=== PATIENT | female | born 1955 | race African-American/Black ===

== ENCOUNTER 2021-08-11 16:31 | Emergency (ER) | payer MEDICAID ==
[~2021-08-11] VITALS: Ht 175.3 cm; Wt 97.1 kg
[2021-08-11 16:36] VITALS: BP 170/100
--- NOTE | 2021-08-11 16:44 | NUR ---
Olga carcamo in [facility] - 08/11/21 at 1645 by [email or web address] PT AMB TO BED 8.
--- NOTE | 2021-08-11 16:45 | NUR ---
PT AMB TO BED 7.
--- NOTE | 2021-08-11 16:55 | NUR ---
DR. VERDE BEDSIDE EVALUATING PT
--- NOTE | 2021-08-11 16:55 | NUR ---
65Y FEMALE BIB SELF DUE TO BILATERAL KNEE PAIN X4 YRS, BUT IS EXPERINCING A FLARE UP XTODAY. PER PATIENT PAIN IS 9/10 AND ACHE LIKE PAIN. PT IS AMBULATORY, BUT STATED "SHE NEEDS TO WALK SLOWER DUE TO PAIN." PT IS ALSO EXPERINCING HIGH BP, CURRENT BP IS 170/100. PT IS EXPERINCING LIGHTHEADNESS/BLURRED VISION, BUT DENIED HEADACHE. PT DENIES TAKING ANY BP MEDICATIONS AT HOME. PT IS A&OX4. PMH: HTN, OA NKA
[2021-08-11] MEDS ORDERED: ACETAMINOPHEN EXTRA STRENGTH 500 MG TAB PO ONE (17:00)
[2021-08-11] MEDS ORDERED: LABETALOL 100 MG/20 ML VIAL IVP ONE (17:05)
--- NOTE | 2021-08-11 17:17 | NUR ---
18G IV ESTABLISHED IN R AC. BLOODWORK COLLECTED AND HANDED TO [employer] BEDSIDE
[2021-08-11 17:27] LABS: BASOPHILS # (AUTO) 0.1 K/uL (0.00-0.22); EOSINOPHILS # (AUTO) 0.2 K/uL (0-0.4); EOSINOPHILS % (AUTO) 2.1 % (0.0-4.0); HEMATOCRIT 40.3 % (36-48); HEMOGLOBIN 13.5 g/dL (12.0-16.0); LYMPHOCYTES # (AUTO) 3.7 K/uL (2.5-16.5); LYMPHOCYTES % (AUTO) 42.7 % (20.5-51.1); MEAN CORPUSCULAR HEMOGLOBIN 30 pg (27-31); MEAN CORPUSCULAR HGB CONC 34 g/dL (33-37); MEAN CORPUSCULAR VOLUME 89.7 fL (80-94); MONOCYTES # (AUTO) 0.7 K/uL (0.8-1.0); MONOCYTES % (AUTO) 8.6 % (1.7-9.3); NEUTROPHILS % (AUTO) 45.6 % (42.2-75.2); PLATELET COUNT (AUTO) 233 K/uL (140-450); RED BLOOD CELL COUNT(AUTO) 4.49 MIL/uL (4.20-5.40); RED CELL DISTRIBUTION WIDTH 13.4 % (11.6-13.7); WHITE BLOOD COUNT (AUTO) 8.7 K/uL (4.8-10.8)
[2021-08-11 17:49] LABS: ALBUMIN 3.5 g/dL (3.4-5.0); CARBON DIOXIDE 26.3 mmol/L (21-32); CREATININE 1.4 mg/dL (0.6-1.3); POTASSIUM 4.3 mmol/L (3.5-5.1); TOTAL BILIRUBIN 0.2 mg/dL (0.0-1.0)
[2021-08-11] MEDS ORDERED: HYDR12.51 PO (18:09)
[2021-08-11 18:20] VITALS: BP 141/78
--- NOTE | 2021-08-11 18:21 | NUR ---
Patient discharged with v/s stable. Written and verbal after care instructions given and explained. Patient alert, oriented and verbalized understanding of instructions. Ambulatory with steady gait. All questions addressed prior to discharge. ID band removed. Patient advised to follow up with PMD. Rx of HYDROCHLOROTHIAZIDE given. Patient educated on indication of medication including possible reaction and side effects. Opportunity to ask questions provided and answered.
== END 2021-08-11 18:20 | disposition home or self-care (01) ==
LOC: MED 16:31
DX: I10 Essential (primary) hypertension (principal); N17.9 Acute kidney failure, unspecified; M25.561 Pain in right knee; M25.562 Pain in left knee; Z79.899 Other long term (current) drug therapy; Z88.6 Allergy status to analgesic agent
CPT/HCPCS: 36415; 80053; 85025; 93005; 99284; J3490